=== PATIENT | female | born 1960 | race Hispanic/Latino ===

== ENCOUNTER 2023-12-12 12:47 | Outpatient (RCR) | payer BC | END 2023-12-21 | LOC: PT 12:47 | PROVIDERS: ATTEND Physician Assistant | DX: M17.0 Bilateral primary osteoarthritis of knee (principal); S80.02XD Contusion of left knee, subsequent encounter; S93.491D Sprain of other ligament of right ankle, subsequent encounter; M62.81 Muscle weakness (generalized); M25.562 Pain in left knee; M25.561 Pain in right knee; R26.2 Difficulty in walking, not elsewhere classified ==

== ENCOUNTER 2024-01-20 10:52 | Outpatient (RCR) | payer BC | END 2024-01-21 | LOC: PT 10:52 | PROVIDERS: ATTEND Physician Assistant | DX: M17.0 Bilateral primary osteoarthritis of knee (principal); S80.02XD Contusion of left knee, subsequent encounter; S93.491D Sprain of other ligament of right ankle, subsequent encounter; M62.81 Muscle weakness (generalized); M25.561 Pain in right knee; M25.562 Pain in left knee; R26.2 Difficulty in walking, not elsewhere classified ==

== ENCOUNTER 2024-01-23 10:48 | Outpatient (RCR) | payer BC | END 2024-02-21 | LOC: PT 10:48 | PROVIDERS: ATTEND Physician Assistant | DX: M25.562 Pain in left knee (principal); M25.561 Pain in right knee; M25.571 Pain in right ankle and joints of right foot ==